=== PATIENT | female | born 1995 | race Caucasian/White ===

== ENCOUNTER 2017-09-30 08:56 | Day surgery (SDC) | payer OTHER ==
[2017-09-28 15:37] LABS: BASOPHILS % (AUTO) 0.2 % (0-1); EOSINOPHILS # (AUTO) 0.2 X10'3 (0-0.9); LYMPHOCYTES # (AUTO) 1.5 X10'3 (1.1-4.8); LYMPHOCYTES % (AUTO) 13.2 % (21-51); MEAN CORPUSCULAR HEMOGLOBIN 31.7 PG (27.0-31.0); MEAN CORPUSCULAR HGB CONC 34.9 % (33.0-36.5); MEAN CORPUSCULAR VOLUME 90.7 FL (78-98); MEAN PLATELET VOLUME 7.6 FL (7.4-10.4); MONOCYTES # (AUTO) 0.6 X10'3 (0-0.9); MONOCYTES % (AUTO) 5.1 % (2-12); NEUTROPHILS # (AUTO) 8.8 X10'3 (1.8-7.7); NEUTROPHILS % (AUTO) 79.5 % (42-75); PRE OP HEMATOCRIT 44.4 % (35.0-45.0); PRE OP HEMOGLOBIN 15.5 g/dL (12.0-16.0); PRE OP PLATELET COUNT 226 X10'3 (140-440); RED BLOOD COUNT 4.89 X10'6 (4.20-5.60); RED CELL DISTRIBUTION WIDTH 12.8 % (11.5-14.5)
[2017-09-28 15:53] LABS: ALBUMIN 4.9 G/DL (3.4-5.0); ALBUMIN/GLOBULIN RATIO 1.4 (1.1-1.5); ALKALINE PHOSPHATASE 65 IU/L (20-180); BLOOD UREA NITROGEN 11 MG/DL (7-18); BUN/CREATININE RATIO 13.9 (6.6-38.0); CALCIUM 9.7 MG/DL (8.5-10.1); CHLORIDE 104 MMOL/L (99-107); CREATININE 0.79 MG/DL (0.40-0.90); PRE OP ALT 25 U/L (30-65); PRE OP ANION GAP 13 (8-16); PRE OP AST 15 U/L (10-37); PRE OP BILIRUB, TOTAL 1.5 MG/DL (0.0-1.0); PRE OP GLUCOSE 85 MG/DL (70-104); PRE OP POTASSIUM 3.4 MMOL/L (3.4-5.1); PRE OP SODIUM 142 MMOL/L (135-145); TOTAL CARBON DIOXIDE 25.3 MMOL/L (24-32); TOTAL PROTEIN 8.3 G/DL (6.4-8.2); eGFR > 90 ML/MIN
[2017-09-28 16:00] LABS: HCG SERUM QL NEGATIVE
[2017-09-30] VITALS (9 sets, daily range): BP systolic 106–117; BP diastolic 60–83
[~2017-09-30] VITALS: Ht 165.1 cm; Wt 61.3 kg
[~2017-09-30 08:56] MED LIST: BUTA1TAB54 PO; NAPR-56 PO; cefazolin/dext.iso 2gm/50ml 50 ML IV ONE; famotidine 20mg tablet PO ONE; ringers solution, lacted 1,000 ML IV SCH
[2017-09-30] MEDS ORDERED: LIDOcaine 1% (10mg/ml) 2ml vial ONE (09:41)
[2017-09-30] MEDS ORDERED: LIDOcaine 1% 30ml vial 30 ML ONE (10:30)
[2017-09-30] MEDS ORDERED: BUPIVAcaine/PF 2.5 mg/ml (0.25%) 30ml vial ONE (10:31)
[2017-09-30] MEDS ORDERED: morphine 10mg/ml inj. ONE ×2 (10:52→10:53)
[2017-09-30] MEDS ORDERED: hydrALAZINE 20mg/ml inj. IV PRN (11:00)
[2017-09-30] MEDS ORDERED: labetalol 5mg/ml 20ml inj. IV PRN (11:00)
[2017-09-30] MEDS ORDERED: ondansetron/PF 4mg/2ml inj IV PRN (11:00)
[2017-09-30] MEDS ORDERED: morphine 2 MG/ML inj. syringe IV PRN ×2 (11:00)
[2017-09-30] MEDS ORDERED: HYDROmorphone inj. 0.5 MG/0.5 ML DISP.SYRIN IV PRN ×2 (11:00)
[2017-09-30] MEDS ORDERED: ringers solution, lacted 1,000 ML IV SCH (11:00)
[2017-09-30] MEDS ORDERED: sevoflurane 250ml liquid IH ONE (11:37)
[2017-09-30] MEDS ORDERED: LIDOcaine 1%/PF (10mg/ml) 5ml vial ONE (11:51)
[2017-09-30] MEDS ORDERED: rocuronium 10mg/ml inj IV ONE (11:51)
[2017-09-30] MEDS ORDERED: propofol inj 20 ML IV ONE (11:52)
[2017-09-30] MEDS ORDERED: dexamethasone sod phosphate 4mg/ml inj. ONE (11:52)
[2017-09-30] MEDS ORDERED: ondansetron/PF 4mg/2ml inj ONE (11:52)
[2017-09-30] MEDS ORDERED: mupirocin 2% ointment 22GM ONE (12:04)
[2017-09-30] MEDS ORDERED: neostigmine methylsulfate 1 MG/ML 10ml vial ONE (12:23)
[2017-09-30] MEDS ORDERED: glycopyrrolate 0.2mg/ml inj ONE (12:23)
[2017-09-30] MEDS ORDERED: HYDROcodone/acetaminophen 5mg/325mg tablet PO ONE (13:35)
== END 2017-09-30 14:28 | disposition home or self-care (01) ==
LOC: PAS 08:56
PROVIDERS: ATTEND Surgery
DX: D21.0 Benign neoplasm of connective and other soft tissue of head, face and neck (principal); G43.909 Migraine, unspecified, not intractable, without status migrainosus; Z88.1 Allergy status to other antibiotic agents; Z79.899 Other long term (current) drug therapy
CPT/HCPCS: 21556; 36415; 80053; 84703; 85025; J0690; J1100; J2001; J2270; J2405; J2704; J2710; J3490; J7120; A7000